=== PATIENT | male | born 1940 | race Caucasian/White ===

== ENCOUNTER 2021-01-21 12:06 | Observation (INO) ==
[~2021-01-21 12:06] MED LIST: BACITRACIN INJ 50,000 UNIT VIAL ONE; BUPIVACAINE 0.25% 30 ML VIAL ONE; LIDOCAINE HCL 1% 20 ML VIAL ONE
[2021-01-21] MEDS ORDERED: fentaNYL citrate 100 MCG/2 ML VIAL ONE (12:41)
[2021-01-21] MEDS ORDERED: MIDAZOLAM HCL 5 MG/ML 1 ML VIAL ONE (12:41)
--- NOTE | 2021-01-21 12:53 | Pre Anesthesia Assessment ---
Date of Service January 21, 2021 Pre Sedation Assessment Vital Signs Temp Pulse Resp BP Pulse Ox 01/21/21 12:20 36.8 C 68 24 187/93 H 98 Cardiovascular + irregularly irregular Respiratory + respiratory effort normal Pre-Sedation Airway Assessment Smoking Status: Never smoker Hx Sleep Apnea: No Short, Thick Neck: No Thyromental Distance: > or= 3.5 Finger Breadths Oral Cavity: + WNL Mallampati Class: III ASA: ASA3 NPO Status Date of Last Intake of Fluids: 01/20/21 Date of Last Intake of Solid Food: 01/20/21 Procedure Planning Contraindications for Sedation: none Current Medications Reviewed: Yes Notes The planned sedation has been discussed with the patient. Informed Consent was obtained. I have identified the patient, determined the appropriateness of sedation and have assessed the patient immediately prior to the procedure. All medicine(s) and interventions are by my order.
--- NOTE | 2021-01-21 12:56 | History & Physical Report ---
Date of Service January 21, 2021 Assessment & Plan (1) Atrial fibrillation: AF with slow ventricular response. Some exertional symptoms suggestive of chronotropic incompetence. Plan single chamber pacemaker. Stopped Pradaxa one day ago. History of Present Illness Chief Complaint: bradycardia Primary Care Provider: Alden Dodd 80 year old with permanent atrial fibrillation and symptomatic bradycardia. Some exercise intolerance. No history of syncope. Allergies Allergy/AdvReac Type Severity Reaction Status Date / Time Iodinated Contrast Media Allergy Severe DIFFICULTY Verified 01/19/21 15:13 BREATHING Home Medications Medication Instructions Recorded Confirmed Type Lactobacillus 1 cap PO QAM cap 01/16/20 01/19/21 History acidophilus-Bifidobac.animalis 31 billion cell capsule allopurinol 300 mg tablet 300 mg PO QAM tab 01/16/20 01/19/21 History amlodipine 10 mg tablet 10 mg PO QAM tab 01/16/20 01/19/21 History antiarthritic combination no.2 900 900 mg PO BID tab 01/16/20 01/19/21 History mg tablet atorvastatin 80 mg tablet 80 mg PO QPM tab 01/16/20 01/19/21 History cholecalciferol (vitamin D3) 50 2,000 units PO QAM tab 01/16/20 01/19/21 History mcg (2,000 unit) tablet dabigatran etexilate 150 mg capsule 150 mg PO BID cap 01/16/20 01/19/21 History furosemide 40 mg tablet 40 mg PO QAM tab 01/16/20 01/19/21 History hydralazine 10 mg tablet 25 mg PO TID tab 01/16/20 01/19/21 History metformin 500 mg tablet 500 mg PO BID tab 01/16/20 01/19/21 History mometasone 50 mcg/actuation nasal 2 spray INTNAS QAM 01/16/20 01/19/21 History spray naproxen sodium 220 mg tablet 220 mg PO BID PRN tab 01/16/20 01/19/21 History olmesartan 40 mg tablet 40 mg PO QAM tab 01/16/20 01/19/21 History olopatadine 0.7 % eye drops 1 drp OP DAILY PRN 01/16/20 01/19/21 History omega-3 fatty acids-fish oil 300 2 cap PO BID cap 01/16/20 01/19/21 History mg-500 mg capsule sertraline 100 mg tablet 100 mg PO QPM tab 01/16/20 01/19/21 History Azopt 1 drp OPHTHALMIC (EYE) BID 06/18/20 01/19/21 History PreserVision AREDS 1 tab PO BID 06/18/20 01/19/21 History acetaminophen 1,300 mg PO Q12H 06/18/20 01/19/21 History famotidine 20 mg PO QPM 06/18/20 01/19/21 History multivitamin 1 tab PO QAM 06/18/20 01/19/21 History spironolactone 25 mg PO QAM 06/18/20 01/19/21 History Past Med/Surg History Medical History (Updated 01/21/21 @ 12:55 by Justin Walker MD) Arthritis Atrial fibrillation F/U DR TERRY Congestive heart failure Diabetes mellitus, type 2 Hyperlipidemia MARY (obstructive sleep apnea) BIPAP SOB (shortness of breath) on exertion Surgical History History of anesthesia reaction SLOW TO WAKE UP History of colonoscopy History of tonsillectomy Surgery, elective REMOVAL HEMINAGIOMA LEFT LEG Family History Uncle Family hx of colon cancer Uncle Family hx of colon cancer Social History Smoking Status: Never smoker Second Hand Exposure: Yes; Hx Alcohol Use: No Hx Substance Use: No Preferred Language: Danish Communication Ability: Effective Gi Physician Required: No Beliefs That Will Affect Care: None Current Living Situation: Spouse Other Information That Helps Us Care for You: No Feels Safe at Home: Yes Safety Concerns: Feels Safe At This Time Assistive Devices: None Physical Exam Physical Exam: Alert. Oriented. Normal respiratory effort. Irregular heart rhythm Results & Data Results & Data ([facility]) Vital Signs (Past 12 Hours) Vital Signs Temp Pulse Resp BP Pulse Ox 01/21/21 12:20 36.8 C 68 24 187/93 H 98 Diagnostic Findings Echocardiogram demonstrated normal LV systolic function
--- NOTE | 2021-01-21 14:34 | Post Anesthesia Assessment ---
Date of Service January 21, 2021 Post Sedation Assessment Vital Signs Temp Pulse Resp BP Pulse Ox 01/21/21 12:20 36.8 C 68 24 187/93 H 98 Recovery Score Activity: Moves 4 extremities Respiration: Deep Breath/Cough Circulation: +/-20% PreAnes Value Consciousness: Fully Awake Oxygen Saturation: > 92% On Room Air Discharge Sedation Level of Care: Fast Track Phase II Post Sedation Plan On clinical assessment, the patient appears to have tolerated the sedation without complications. Patient is recovering as anticipated. Patient will continue to be monitored by nursing and may be discharged when sedation discharge criteria are met per below protocol. Upon Completions of procedure up to 15 minutes continue every 5 minute vital signs and the P.A.R. score; then discharge to a Phase I or Fast Track to Phase II per the following guidelines: * Discharge Patient to appropriate Phase II area if PAR is 8 or greater or return to pre- procedure baseline. The post - procedure orders will be as directed. * If PAR score is less than 8 or not return to pre-procedure baseline then patient will follow Phase I monitoring till PAR is reached for Phase II. The Phase I may be done in procedure room or may call to secure a Phase I area. * If naloxone or flumazenil are used for reversal, hold in Phase I for continued monitoring from when last reversal dose was given for a minimum of 60 minutes or longer pending the nurse and/or physician discretion of patient condition before discharge to Phase II. Please call the Sedation Physician to re-evaluate and complete post-note for discharge to Phase II area. Do NOT discharge from procedure sedation or Phase 1 until post- sedation evaluation note is complete by procedure /sedation MD Sedation Discharge Instructions to be given to the patient at discharge to home.
[2021-01-21] MEDS ORDERED: ACETAMINOPHEN 325 MG TAB PO PRN (14:35)
[2021-01-21] MEDS ORDERED: oxyCODONE HCL IR 5 MG TAB (IMMEDIATE RELEASE) PO PRN (14:35)
--- NOTE | 2021-01-21 14:35 | Electrophysiology Report ---
Date of Service January 21, 2021 Electrophysiology Procedure Electrophysiology Procedure Report Procedure performed: Implantation of single-chamber pacemaker Staff powersaw supervisor: Felipe Walker MD Indication: The patient is an 80-year-old gentleman with a history of permanent atrial fibrillation. He was noticed recently to have significant bradycardia with ventricular rates in the 30s. He also has an element of exercise intolerance likely due to chronotropic dysfunction. As result he is not a good candidate for a permanent pacemaker for symptomatic nonreversible AV node dysfunction. Procedure in detail: The patient was informed of the risks benefits and alternatives to the intended procedure and she wished to proceed. He was taken to the electrophysiology suite in a fasting state. A preoperative antibiotic had been administered. The patient was monitored electrocardiographically throughout today's procedure and conscious sedation was administered per protocol. The left upper pectoral area is prepped and draped in usual sterile fashion. This area was anesthetized using subcutaneous administration of a xylocaine solution. An incision was made at this site and carried down to the prepectoralis fascia using sharp dissection. Electrocautery was also employed for dissection as well as for hemostasis. A device pocket was fashioned tissues above the pectoralis muscle. The left axillary vein was doubly accessed using modified Seldinger technique and the she ath was placed over guidewire at the site. This sheath was initially used to facilitate passage of the guiding catheter for placement of a septal lead. Multiple sites were tested and multiple attempts at placing the lead were made but abandoned due to the absence of a satisfactory pacing waveform. The lead and guiding catheter were removed. This sheath was used to facilitate passage of a standard pacing lead to the right ventricular apex under fluoroscopic guidance. Adequate sensing and threshold parameters were obtained prior to active-fixation of this lead to the endocardial surface. The proximal portion of lead was then sutured the prepectoral/using nonabsorbable suture. The device pocket was irrigated with antibiotic solution. The device and lead were then placed in the pocket and pocket was closed in 3 layers of absorbable suture. Steri-Strips and sterile dressing were applied. The device was tested noninvasively prior to conclusion the procedure. The patient tolerated procedure well there no immediate complications. Equipment used: New pulse generator: [employer]. Model number: [id number] serial number [id number] Right ventricular lead: [employer]. Model number: [id number] serial number [id number] Measured data: Right ventricular lead: R waves measured 7.6 mV. Pacing threshold 0.5 V 0.4 ms with a pacing pins of 456 ohms Impression: Successful implantation of single-chamber permanent pacemaker [facility] Electrophysiology codes Pacing Procedure 1: Pacin Insert/Replace Pacer V PG Moderate Sedation Codes Moderate Sedation Codes Procedure 1: Sedation/Anesthesia: 51417 Mod Sedation by the same physician;Init15 Min Child Age 5 & Up Procedure 2: Sedation/Anesthesia: 02061 Mod Sedation by the same physician; Ea [id number] Minutes
[2021-01-21] MEDS: metFORMIN HCL 500 MG TAB PO SCH (17:43)
--- NOTE | 2021-01-21 17:54 | XRay Report ---
XR chest 1V portable CLINICAL HISTORY: New pacemaker today now with V-tach COMPARISON STUDY: 11/08/2015 FINDINGS: The heart is enlarged. There is a single chamber left subclavian central venous pacemaker. There is subtle elevation of interstitium. Mild pulmonary vascular congestion not excluded. Is no lob ar consolidation. There are no large pleural effusions.[ IMPRESSION: 1. Cardiomegaly 2. Left subclavian single chamber central venous pacemaker. No pneumothorax 3. Subtle nonspecific interstitial thickening ACT 112: Negative or not required by law. Electronically signed by: Brenton Puentes M.D. 01/21/2021 5:53 PM
[2021-01-21 18:17] LABS: BUN Creatinine Ratio 23.2 (10-20); Calcium 9.5 mg/dl (8.5-10.1); Creatinine Clr Calc Pharmacy 62.4 ml/min; Est GFR (African American) 65.3; Est GFR (Non-African American) 56.4; Potassium 3.9 mmol/L (3.5-5.1)
[2021-01-21 18:27] LABS: Thyroid Stimulating Hormone 0.92 uIu/ml (0.300-4.500)
[2021-01-21] MEDS ORDERED: FAMOTIDINE 20 MG TAB PO SCH (21:00)
[2021-01-21] MEDS ORDERED: SERTRALINE HCL 100 MG TABLET PO SCH (21:00)
[2021-01-21] MEDS: BRINZOLAMIDE (AZOPT) OPS 10 ML BTL OP SCH (21:10)
[2021-01-21] MEDS: hydrALAZINE HCL 25 MG TAB PO SCH (21:10)
[2021-01-21] MEDS: ceFAZolin 1000MG 1,000 MG/7.5 ML SYR IV SCH (22:06)
[2021-01-22 04:54] LABS: Est GFR (African American) 75.1; Est GFR (Non-African American) 64.8
[2021-01-22] MEDS: ceFAZolin 1000MG 1,000 MG/7.5 ML SYR IV SCH (05:27)
--- NOTE | 2021-01-22 08:28 | XRay Report ---
XR chest 2V PA/lateral HISTORY: Interval placement of a left-sided pacemaker. Shortness of breath. Follow-up. COMPARISON: Chest 01/21/2021. FINDINGS: No pneumothorax. The heart remains enlarged. There is interval resolution of the pulmonary vascular congestion. No pleural effusions. No focal lung consolidations. The left-sided single lead p acemaker. The lead appears intact. IMPRESSION: 1. Left-sided single lead pacemaker. No pneumothorax. 2. The pulmonary vasculature congestion has resolved. 3. Stable cardiomegaly. ACT 112: Negative or not required by law. Electronically signed by: Odell Gallegos M.D. 01/22/2021 8:27 AM
[2021-01-22] MEDS: hydrALAZINE HCL 25 MG TAB PO SCH (08:32)
[2021-01-22] MEDS: BRINZOLAMIDE (AZOPT) OPS 10 ML BTL OP SCH (08:33)
[2021-01-22] MEDS: metFORMIN HCL 500 MG TAB PO SCH (08:34)
[2021-01-22] MEDS ORDERED: SPIRONOLACTONE 25 MG TAB PO SCH (09:00)
[2021-01-22] MEDS ORDERED: amLODIPine BESYLATE 5 MG TAB PO SCH (09:00)
[2021-01-22] MEDS ORDERED: ATORVASTATIN 40 MG TAB PO SCH (09:00)
[2021-01-22] MEDS ORDERED: OLMESARTAN MEDOXOMIL 40 MG TAB PO SCH (09:00)
[2021-01-22] MEDS ORDERED: allopurinoL 300 MG TAB PO SCH (09:00)
[2021-01-22] MEDS ORDERED: FUROSEMIDE 40 MG TAB PO SCH (09:00)
--- NOTE | 2021-01-22 09:08 | Discharge Summary ---
Date of Service January 22, 2021 Admission HPI Per Admitting Provider 80 year old with permanent atrial fibrillation and symptomatic bradycardia. Some exercise intolerance. No history of syncope. Principal Diagnosis q Discharge Exam implant site is clean and dry. No ecchymosis, drainage or swelling. Discharge Data Allergies Allergy/AdvReac Type Severity Reaction Status Date / Time Iodinated Contrast Media Allergy Severe DIFFICULTY Verified 01/19/21 15:13 BREATHING Procedures Performed Operation Date: 01/21/21 13:00 Actual Procedures p Pacer with Ventricular Lead - Justin Walker MD Ordered Studies 01/21/21 12:59 CL Cath Imgs for PACS use only Routine Hospital Course (1) Atrial fibrillation: On the day of admission the patient underwent implantation of a single- chamber [employer] permanent pacemaker. No immediate complications. Overnight he did have some brief runs of nonsustained ventricular tachycardia that were fairly infrequent. No associated symptoms. At the time of discharge the patient was feeling well. No pain at the implant site. No evidence of complication. Device interrogation and chest x-ray were normal. Total Time Total Time Spent Total Time Spent (In Minutes): 12 Total Time Includes: Examination of the Patient, Discharge Planning and Medication Reconciliation Discharge Plan Discharge Items Patient Disposition: Home - Self-Care Reason For Visit: Chronic Diastolic Heart Failure Discharge Diagnosis: symptomatic bradycardia Activity: Per Instructions section Activity Comment: no lifting left arm above shoulder or behind neck for 6 weeks Lifting: No more than 10 pounds Bathing: Keep incision dry Bathing Comment: keep wound dry and Steri-Strips intact for 1 week Driving/Machine Use: Resume 1 day after discharge Non-emergency contact: Detail Technician Call non-emergency contact if: you have any medication questions, your pain is not controlled, you have a fever, your wound has increased drainage and your wound pain has increased Follow-up/Referrals: Alden Dodd [Primary Care Provider] - Diet: Carb Consistent or DM2 Addtl Attending Provider Instructions: do not restart Pradaxa until January 24 Pending Studies at Discharge: No Stand-Alone Forms: My [facility] [employer] Medications and DC Order Prescriptions: Continued Lacto.acidophilus-Bif.animalis 31 billion cell capsule 1 cap PO QAM RF: 0 olopatadine 0.7 % drops 1 drp OP DAILY PRN (Reason: Dry Eyes) RF: 0 cholecalciferol (vitamin D3) 50 mcg (2,000 unit) tablet 2,000 units PO QAM RF: 0 olmesartan 40 mg tablet 40 mg PO QAM RF: 0 mometasone 50 mcg/actuation spray,non-aerosol 2 spray INTNAS QAM RF: 0 amlodipine 10 mg tablet 10 mg PO QAM RF: 0 sertraline 100 mg tablet 100 mg PO QPM RF: 0 atorvastatin 80 mg tablet 80 mg PO QPM RF: 0 hydralazine 10 mg tablet 25 mg PO TID RF: 0 metformin 500 mg tablet 500 mg PO BID RF: 0 glucosamine-chondroitin 900 mg tablet 900 mg PO BID RF: 0 Fish Oil 300-500 mg capsule 2 cap PO BID RF: 0 dabigatran etexilate 150 mg capsule 150 mg PO BID RF: 0 allopurinol 300 mg tablet 300 mg PO QAM RF: 0 furosemide 40 mg tablet 40 mg PO QAM RF: 0 Azopt 1 % Drops,Suspension 1 drp OPHTHALMIC (EYE) BID RF: 0 famotidine 20 mg Tablet 20 mg PO QPM RF: 0 PreserVision AREDS [id number]-[id number] Tablet 1 tab PO BID RF: 0 multivitamin Tablet 1 tab PO QAM RF: 0 spironolactone 25 mg Tablet 25 mg PO QAM RF: 0 acetaminophen 650 mg Tablet Extended Release 1,300 mg PO Q12H RF: 0 Discontinued naproxen sodium 220 mg tablet 220 mg PO BID PRN (Reason: Pain) RF: 0 Discharge Orders: Discharge Order (Routine); Ordered 01/22/21 Ordered By: Justin Walker Admission Data Admit Date/Time: 01/21/21 13:42 Attending Provider: Justin Walker Admit Provider: Justin Walker Primary Care Provider: Alden Dodd Coding Level of Care Code 78121 OBS Care - Discharge Diagnoses Atrial fibrillation I48.91
== END 2021-01-22 10:07 | disposition home or self-care (01) ==
LOC: 1E 12:06 → EP 12:06